=== PATIENT | male | born 1965 | race Caucasian/White ===

== ENCOUNTER 2018-07-22 14:47 | Outpatient (CLI) | payer OTHER, SELFPAY ==
--- NOTE | 2018-07-22 14:44 | DI.RAD_ITS ---
SYMPTOM/DIAGNOSIS: WRIST PAIN RIGHT WRIST: Three views. No priors. No acute fracture or dislocation is identified. At the first carpal metacarpal joint there are small osteophytes seen. Mild joint space narrowing is also noted. There are a few tiny well corticated osseous fragments at the lateral aspect of the wrist. These appear old. The bones are normally mineralized. IMPRESSION: Mild degenerative changes of the first carpal metacarpal joint.
--- NOTE | 2018-07-22 14:44 | DI.RAD_ITS ---
SYMPTOM/DIAGNOSIS: WRIST PAIN LEFT WRIST: Four views. At the first carpal metacarpal joint mild periarticular spurring is present. The joint spaces of the wrist were otherwise well maintained. The bones are intact. No acute fracture or dislocation is seen. No suspicious lytic or sclerotic lesions are present. The soft tissues are unremarkable. IMPRESSION: Mild degenerative changes of the first carpal metacarpal joint.
== END 2018-07-22 15:07 ==
PROVIDERS: PCP Family Medicine; Visit Provider Physician Assistant
DX: M25.531 Pain in right wrist (principal); M25.532 Pain in left wrist; M18.0 Bilateral primary osteoarthritis of first carpometacarpal joints
CPT/HCPCS: 73110

== ENCOUNTER 2020-12-31 16:12 | Outpatient (REF) | payer OTHER, SELFPAY ==
[2020-12-31 21:08] LABS: Calculated LDL 121 mg/dL (<100); Cholesterol 204 mg/dL (<200); HDL Cholesterol 49 mg/dL (40-60); Triglyceride 174 mg/dL (<150)
[2021-01-03 09:31] LABS: PSA, Screening 1.4 ng/mL (0.0-3.5)
== END 2020-12-31 16:13 | disposition home or self-care (01) ==
LOC: LBN 16:12
PROVIDERS: PCP Family Medicine; Visit Provider Family Medicine
DX: E78.5 Hyperlipidemia, unspecified (principal); Z12.5 Encounter for screening for malignant neoplasm of prostate
CPT/HCPCS: 80061; 84153

== ENCOUNTER 2021-08-15 07:42 | Outpatient (REF) | payer OTHER, SELFPAY ==
[2021-08-15 08:10] LABS: Source Nasal/Nares
[2021-08-15 12:07] LABS: COVID-19 PCR Negative (Negative)
== END 2021-08-15 07:43 | disposition home or self-care (01) ==
LOC: LBN 07:42
PROVIDERS: PCP Family Medicine; Visit Provider Surgery
DX: Z20.822 Contact with and (suspected) exposure to COVID-19 (principal)
CPT/HCPCS: 87635

== ENCOUNTER 2021-08-17 07:20 | Day surgery (SDC) | payer OTHER, SELFPAY ==
--- NOTE | 2021-08-16 14:03 | W.ANESPRE ---
General Info Date of Service Date Performed: 08/17/21 Height: 6 ft 2 in Weight: 92.646 kg Body Mass Index (BMI): 26.2 Surgical Procedure: Operation Date: 08/17/21 09:35 Proposed Procedures Side Surgeon shonda Park MD Meds Allergies and Home Medications Allergies Allergy/AdvReac Type Severity Reaction Status Date / Time No Known Allergies Allergy Verified 08/17/21 07:41 Home Medication Medication Instructions Recorded ibuprofen 800 mg PO Q8H PRN PRN #100 tab-cap 08/13/17 citalopram 20 mg tablet 20 mg PO DAILY #90 tab-cap 12/31/20 hydrocodone 5 mg-acetaminophen 325 1 tab PO BID PRN #30 tab-cap MDD 2 07/13/21 mg tablet tabs Current Visit Medications: Current Medications Generic Name Dose Route Start Last Admin Trade Name Freq PRN Reason Stop Dose Admin Ringer's Solution 1,000 mls @ 80 mls/hr 08/17/21 06:00 IV 09/15/21 23:59 INFUSION JOSE IV Miscellaneous Supplies 1 each 08/17/21 06:00 Iv Access IV 09/15/21 23:59 DIRECTED JOSE Sodium Chloride 0 ml 08/17/21 06:00 Normal Saline Flush 10 Ml Syr IV 09/15/21 23:59 PRN PRN Sodium Chloride 0 ml 08/17/21 06:00 Normal Saline 10 Ml Vial IJ 09/15/21 23:59 DIRECTED PRN Sterile Water 0 ml 08/17/21 06:00 Water,Injection,Sterile 10 Ml Vial IJ 09/15/21 23:59 DIRECTED PRN PFSH Active Problems Active Problems: Problem Status Onset Code Deviated nasal septum 10/23/16 J34.2 Hypertrophy of nasal turbinates 07/30/17 J34.3 Low back pain M54.5 Nasal valve collapse 07/30/17 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, soft tissue, 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 Sleep-disordered breathing 07/30/17 G47.30 Snoring 08/13/17 R06.83 Encounter for annual physical exam Z00.00 Medical History Active Problem List Deviated nasal septum (Acute 10/23/16) Hypertrophy of nasal turbinates (Acute 07/30/17) Low back pain (Acute) Nasal valve collapse (Acute 07/30/17) Neoplasm of unspecified nature of bone, soft tissue, and skin (Acute 01/14/18) Sleep-disordered breathing (Acute 07/30/17) Snoring (Acute 08/13/17) Encounter for annual physical exam (Acute) Medical History Adenoma of colon (11/10/15) Family history of prostate cancer (08/24/14) father Fatigue Hand arthritis Hyperlipidemia Hypothyroidism Left inguinal hernia Separation of acromioclavicular joint (08/24/14) Surgical History Surgical History (Updated 08/17/21 @ 07:44 by Shannon Piña) History of right knee surgery (08/24/14) Hx of LASIK Repair of inguinal hernia (08/13/17) RIGHT - 07/18/16 Left - 08/13/17 Tobacco Smoking/Tobacco Use Status: Never Passive smoking exposure: Yes Alcohol Alcohol Intake: current Alcohol intake frequency: a few times a month Alcohol type: beer Substance Use Substance use: Never Substance use type: does not use Details: CBD oil Vital Signs and Lab Results Lab Results Blood Type / Crossmatch: No Data to Display Complete Blood Count: No Data to Display Complete Metabolic Panel: No Data to Display Liver Function Panel: No Data to Display Coagulation Panel: No Data to Display Cardiac Panel: No Data to Display Arterial Blood Gas: No Data to Display Venous Blood Gas: No Data to Display Pancreas Panel: No Data to Display Thyroid Panel: No Data to Display Infectious Disease: Coronavirus (COVID-19)(PCR) Negative (Negative) 08/15/21 06:00 08/15/21 Coronavirus 2019 Source Nasal/Nares 08/15/21 06:00 08/15/21 Blood Cultures: No Data to Display Toxicology Panel: No Data to Display Anesthesia Assessment and Plan Anesthesia History Personal History: No History of Anesthesia Complications Family History: No Family History of Anesthesia Complications Exercise Tolerance Exercise Tolerance: Metabolic Equivalents>4 Cardiac & Pulmonary Exam Cardiac Exam: Normal S1/S2 Heart Sounds Pulmonary Exam: Clear Bilateral Breath Sounds Implantable Cardiac Device Does patient have a Pacemaker or an ICD?: No Airway Exam Known Difficult Airway: No Mallampati Class: 1 Mouth Opening: Normal (> 3cm) Thyromental Distance: Greater than 3 cm Neck Range of Motion: Full ROM Neck Circumference: Normal Teeth Condition: Normal Dentition ASA Classification ASA Score: ASA 2 Emergency Case?: No NPO Status NPO Status: NPO Clears >2 hours, Solids >8 hours Anesthesia Plan Resuscitation Status: Full Code Anesthesia Technique: General Anesthesia Airway Planned: Natural Airway Monitors Used: Standard Monitors Preoperative Comments:: 56 yo male for colo with history of polyps. Sig PMHx: denies major. Previous Anes: willams 2, easy mask.
--- NOTE | 2021-08-17 06:38 | W.COLOREPORT ---
Colonoscopy Report Date of procedure: 08/17/21 Pre-op diagnosis general: Hx of colon polyps Post-op diagnosis procedure note: same (polyps) Procedure: Colonoscopy with polypectomy Surgeon: Ale Park Anesthesia Type: General:No Airway (Juventino Armendariz CRNA) Estimated blood loss (mL): 2 Pathology: other (descending colon polyp and rectal polyp) Complications: None Disposition: same day Indications: Lisandro is a healthy 56-year-old patient who had a colonoscopy back in 2016 and was found to have a sessile serrated adenoma of the ascending colon. He is here for another screening colonoscopy. He denies any changes in bowel habits, melena, hematochezia or family history of colon cancer. He has no chest pain, cardiovascular disease history or shortness of breath. [place]. Risks, benefits and complications were reviewed with him Risks, benefits and complications have been reviewed. Complications include but are not limited to bleeding, pain, perforation, missed small lesion/polyp, sore throat, aspiration and adverse reaction to the medications. Questions were entertained and answered to their satisfaction and they wished to proceed. No guarantees were given or implied. Colonoscopy under sedation Prep: Miralax/Dulcolax Procedure Start Time: 08:57 Procedure End Time: 09:19 Retraction Time: 12 minutes Findings: 2 small polyps Procedure Description: After informed consent was obtained the patient was taken to the procedure room and placed in a left decubitous position. Monitors were applied and a time out was done. The patients name, date of , procedure, allergies to medications and metal in their body was reviewed. The patient was then sedated. Once sedated and comfortable a rectal exam was done. External exam was normal. Internal exam revealed a normal sphincter tone and no palpable masses. The prostate felt smooth and slightly enlarged. The scope was then introduced and retro-flexed. No internal hemorrhoids, polyps or masses were identified on retro-flexion. The scope was then advanced to the cecum without difficulty. The ileocecal vlave and appendiceal orifice were identified. The prep was good. The scope was then slowly retracted over [] minutes back into the rectum. Polyps were removed with cold forceps in the descending colon and rectum. There was no diverticulosis noted. The scope was removed and the patient was woken up and taken back to Same day surgery in stable condition. The patient tolerated the procedure well and there were no immediate complications. Follow up: The patient should follow up in 5 years unless they develop changes in bowel habits or other new gastrointestinal complaints.
--- NOTE | 2021-08-17 06:39 | W.PM.DSUDISC ---
Discharge Plan Disposition Patient Disposition: HOME Condition: Good Discharge Details Reason For Visit: Colonoscopy Attending Provider: Ale Park Primary Care Provider: Tab Jeong Home Meds and New Rx's Prescriptions: Continued citalopram 20 mg tablet 20 mg PO DAILY Qty: 90 RF: 3 hydrocodone-acetaminophen 5-325 mg tablet 1 tab PO BID MDD 2 tabs PRN (Reason: chronic pain) Qty: 30 RF: 0 ibuprofen 200 MG tablet 800 mg PO Q8H PRN PRNQty: 100 RF: 0 Discharge Instructions Additional Instructions: Findings: 2 polyps Follow up: 5 years Please call if you develop: fevers >101.5 Nausea or Vomiting Abdominal pain that is not transient Rectal bleeding that is more then a tbsp A hard abdomen and inability to pass gas DAY SURGERY UNIT POST ENDOSCOPY INSTRUCTIONS Instructions for everyone who is given Anesthesia: For your safety, please do the following for the next 24 Hours: a. Do not drive or operate dangerous equipment b. Do not drink alcohol beverages or use any recreational drugs for the first 24 hours or while taking pain medications. The medications in your body may have a reaction that can be dangerous. c. Do not make any important decisions or sign any important papers 1. Generally there are no restrictions on your activity after a day or so has gone by, but you may feel a bit fatigued for a few days. 2. After you arrive home you may have a light meal and return to a normal diet as you can tolerate it without feeling sick to your stomach. 3. After surgery, you may feel pain or discomfort. This should be only transient, but if it persists please contact your doctor. 4. If there are any questions regarding the findings of your procedure, please feel free to contact your doctor. 6. If you are unable to contact your doctor with a problem, contact the hospital at [phone]. 7. Continue all your regular medications unless directed otherwise. I understand the above instructions and have no questions. Signature of Patient or Responsible Adult Escort Date/Time Name of Responsible Adult Escort Signature of Nurse Date/Time Activity:: Activity as Tolerated Diet:: As Tolerated Discharge Orders Discharge Orders: Discharge Order (Routine); Ordered 08/17/21 Ordered By: Ale Park
[2021-08-17 07:46] VITALS: BP 118/86; PULSE 67; RESP 16; TEMP 36.2; O2SAT 97
[2021-08-17] MEDS: Lactated Ringers 1,000 ML 80 ML IV (07:50)
[2021-08-17 08:16] VITALS: BMI 26.2
--- NOTE | 2021-08-17 09:12 | BOWEL_PTH ---
PATIENT: Lisandro Alcantara LOC: [facility] U#:[id number] AGE/SX: 56/M ROOM: RE08/17/[address]: Ale Park MD : 1965 BED: DIS: 08/17/2021 SPEC #: [id number] RECD: 08/17/21 12:40 STATUS: ARTHUR REQ #: [id number] ELI: 08/17/21 09:[address]: Ale Park DEPT: Surgical Specimen RECD BY: Maria Esther Ramsey ENTERED: 08/17/21 12:41 SP TYPE: Bowel OTHR DR: Tab Jeong MD Tissues: 1 - BIOPSY BOWEL 2 - BIOPSY BOWEL Procedures: GROSS AND MICRO LEVEL 4 Comments: [id number]
[2021-08-17 09:28] VITALS: BP 105/64; PULSE 70; RESP 16; TEMP 36.5; O2SAT 93
--- NOTE | 2021-08-17 09:45 | W.ANESPOSTOP ---
Postoperative Evaluation Date, Time and Location Date Performed: 08/17/21 Time Performed: 09:46 Patient Location: Day Surgery Unit Vital Signs Most Recent Imported Vital Signs: Most Recent Vital Signs Temp Pulse Resp BP Pulse Ox 36.5 C 70 16 105/64 93 08/17/21 09:28 08/17/21 09:28 08/17/21 09:28 08/17/21 09:28 08/17/21 09:28 Pain Score Most Recent Pain Score: Most Recent Pain Score Pain Level 0 08/17/21 09:28 Assessment Mental Status: Awake (Alert & Oriented to Patient Baseline) Airway and Respiratory Function: Patent airway with normal (patient baseline) respiratory exam Cardiovascular Function: Hemodynamically Stable Hydration Status: Adequately Hydrated Nausea & Vomiting: No Nausea or Vomiting Pain: Pt. Denies Any Pain Peripheral Nerve Block: Patient did not receive a nerve block
[2021-08-17 09:57] VITALS: BP 105/69; PULSE 74; RESP 16; TEMP 36.6; O2SAT 95
== END 2021-08-17 10:17 | disposition home or self-care (01) ==
LOC: SUR 07:21
PROVIDERS: PCP Family Medicine; Visit Provider Surgery
PROC: 0DJD8ZZ Inspection of Lower Intestinal Tract, Via Natural or Artificial Opening Endoscopic (ICD-10-PCS; CPT 45378; principal; 2021-08-17 09:30)
DX: Z12.11 Encounter for screening for malignant neoplasm of colon (principal); D12.3 Benign neoplasm of transverse colon; D12.8 Benign neoplasm of rectum; Z86.010 Personal history of colon polyps
CPT/HCPCS: 45380; 88305; J2001

== ENCOUNTER 2023-01-09 08:58 | Outpatient (CLI) | payer OTHER, SELFPAY ==
[2023-01-09 12:38] LABS: Abs Immature Grans 0.01 10^3/uL (0.0-0.06); Absolute Basophil Count 0.03 10^3/uL (0.0-0.2); Absolute Eosinophil Count 0.06 10^3/uL (0.0-0.7); Absolute Lymphocyte Count 1.45 10^3/uL (1.2-3.4); Absolute Monocyte Count 0.46 10^3/uL (0.1-0.8); Absolute Neutrophil Count 2.76 10^3/uL (1.2-6.7); Basophils % 0.6; Eosinophils % 1.3; HCT 45.6 % (40.0-50.0); HGB 15.9 g/dL (13.5-17.5); Immature Grans % 0.2; Lymphocytes % 30.4; MCH 33.2 pg (27.0-33.0); MCHC 34.9 % (32.0-36.0); MCV 95 fL (80-95); MPV 11.6 fL (8.0-11.0); Monocytes % 9.6; Neutrophils % 57.9; Platelet Count 172 10^3/uL (130-400); RBC 4.79 10^6/uL (4.36-5.78); RDW 11.9 % (11.8-14.1); RDW-SD 41.7 fL; WBC 4.77 10^3/uL (4.4-10.8)
[2023-01-09 12:39] LABS: ESR < 1 mm/hr (0-20)
[2023-01-09 12:58] LABS: C-Reactive Protein < 0.05 mg/dL (0.0-0.3); Estimated GFR 87.78 (mL/min/1.73m2); Glucose 98 mg/dL (74-106)
[2023-01-10 17:58] LABS: Rheumatoid Factor <8.6 IU/mL (<12.0)
[2023-01-10 20:05] LABS: PSA, Screening 2.4 ng/mL (<=3.5)
== END 2023-01-09 08:59 | disposition home or self-care (01) ==
PROVIDERS: PCP Family Medicine; Referring Provider Family Medicine; Visit Provider Family Medicine
DX: R41.89 Other symptoms and signs involving cognitive functions and awareness (principal); D64.9 Anemia, unspecified; R73.9 Hyperglycemia, unspecified; Z12.5 Encounter for screening for malignant neoplasm of prostate; I10 Essential (primary) hypertension
CPT/HCPCS: 36415; 82947; 84153; 85652; 82565; 85025; 86140; 86431

== ENCOUNTER → 2023-11-06 09:44 | Outpatient (CLI) | payer OTHER, SELFPAY ==
--- NOTE | 2023-11-06 14:54 | DI.RAD_ITS ---
Exam(s) XR SHOULDER RT COMPLETE 2+V EXAM: XR SHOULDER RT COMPLETE 2+V CLINICAL HISTORY: ongoing pain; no acute injury M25.511 PAIN RT SHOULDER. TECHNIQUE: 2D digital imaging was performed. Five views. COMPARISON: CR RIGHT SHOULDER COMPLETE from 10/12/2011 FINDINGS: BONES: No acute fracture is present. No bony destructive lesion is seen. JOINTS: The AC joint is widened. There is mild spurring. There are 2 adjacent well-corticated bony densities likely related to old trauma. The coracoclavicular distance is normal. Humeral head is n ormally positioned. The glenohumeral joint space is maintained. Minimal spurring at the glenoid. SOFT TISSUE: Normal. IMPRESSION: Old trauma to the AC joint and distal clavicle. Mild degenerative changes. DATA REPOSITORY: RADIATION DOSE DELIVERED:
== END ==
PROVIDERS: PCP Family Medicine; Visit Provider Family Medicine
DX: M25.511 Pain in right shoulder (principal)
CPT/HCPCS: 73030

== ENCOUNTER → 2024-01-08 04:32 | Outpatient (CLI) | payer OTHER, SELFPAY ==
--- NOTE | 2024-01-08 08:15 | DI.MRI_ITS ---
Exam(s) MR UPPER JOINT RT WO EXAM: MR UPPER JOINT RT WO CLINICAL HISTORY: R SHOULDER PAIN,labral tear rt shoulder, m25.511,s43.239A. TECHNIQUE: Multiplanar multisequence MRI was performed. COMPARISON: Plain films 06 November 2023 FINDINGS: BONES: There is no fracture or contusion pattern. JOINTS:The acromioclavicular joint is widened. Adjacent bony fragments. Spurring at the undersurfac e of the acromion. The glenohumeral joint is normal. TENDONS: Supraspinatus: Small focal full-thickness tear anteriorly in distally. Infraspinatus: Unremarkable. Subscapularis: Unremarkable. Teres Minor: Unremarkable. Biceps and Mccall: Intact. Minimal fluid in the biceps tendon sheath. MUSCLES: Unremarkable. GLENOID LABRUM: Unremarkable on this noncontrast examination. SOFT TISSUES: Unremarkable. OTHER: Subacromial and subdeltoid bursae show small amount of fluid. . Loculated fluid in the subcoracoid bursa. Loculated appearing fluid anterior to supraspinatus tendon . IMPRESSION: focal full-thickness tear of the anterior aspect of the supraspinatus tendon. Loculated fluid in subcoracoid bursa. DATA REPOSITORY:
== END ==
PROVIDERS: PCP Family Medicine; Visit Provider Student in an Organized Health Care Education/Training Program
DX: M75.121 Complete rotator cuff tear or rupture of right shoulder, not specified as traumatic (principal); M25.511 Pain in right shoulder
CPT/HCPCS: 73221

== ENCOUNTER 2024-03-06 06:13 | Day surgery (SDC) | payer OTHER, SELFPAY ==
[2024-03-06] VITALS (22 sets, daily range): BP systolic 98–124; BP diastolic 73–85; PULSE 62–77; RESP 14–21; TEMP 36.2–36.8; O2SAT 92–95; BMI 27.4
--- NOTE | 2024-03-06 07:07 | W.PM.DSUDISC ---
Date of service: 03/06/24 Time of Service: 13:00 Discharge Plan Disposition Patient Disposition: Home Condition: Stable Discharge Details Attending Provider: Les Dorsey Primary Care Provider: Tab Jeong Home Meds and New Rx's Prescriptions: New naproxen 250 mg tablet 250 - 500 mg PO BID PRN (Reason: Moderate pain) Qty: 40 0RF Continued hydrocodone-acetaminophen 5-325 mg tablet 1 tab PO BID MDD 2 tabs PRN (Reason: chronic pain) Qty: 30 0RF citalopram 20 mg tablet 20 mg PO DAILY Qty: 90 3RF cbd 20 mg capsule 20 mg PO DIRECTED PRN multivitamin [Daily Multi-Vitamin] Tablet 1 tab PO DAILY Discontinued ibuprofen 200 MG tablet 800 mg PO Q8H PRN PRNQty: 100 0RF Discharge Instructions Additional Instructions: Surgery: Right shoulder arthroscopy with rotator cuff repair (subscapularis and supraspinatus), biceps tenodesis, extensive debridement, and subacromial decompression. Activity: For 6 weeks, you should keep your arm at your side in a neutral position at all times except for physical therapy. Do not try to lift or raise your arm using your own muscles. You should use the sling whenever you are out of the house. At home it is best to remove the sling and rest the arm on a pillow at your side or support the operative side with your other hand. You may allow the arm to dangle at your side. A physical therapy prescription will be sent electronically to begin in about 3 weeks. CONSERVATIVE protocol. Prescriptions: Hydrocodone?acetaminophen as prescribed by your primary care doctor Naproxen 250 mg take 1-2 every 12 hours with a meal as needed for moderate pain. Do not take other NSAIDs while taking this medication. You may use [id number] Tylenol (acetaminophen) as needed for mild pain. These pain medications may be taken all at once or in different combinations as needed. Also, recommend Colace (docusate) as a stool softener as surgery and pain medicine cause constipation. You may try [id number] diphenhydramine (Benadryl) 25-50 mg nightly as a sleep aid Dressings: Remove shoulder bandage after 3 days. Leave the sticky Steri-Strips in place until they fall off or remove them after you shower. Cover the incisions with Band-Aids or leave them open to air. You may shower after 5 days. Follow-up: 10-[address] Dorsey You may take off the leg compression stockings this evening at home. You may also leave them on a few days longer if you have a history of leg swelling or edema. Let us know right away if you develop any redness, drainage, fevers, chest pain, or trouble breathing. Do not drink alcohol or drive for at least 24 hours after anesthesia. Please call the office during business hours with any questions or concerns. Discharge Orders Discharge Orders: Discharge Order (Routine); Ordered 03/06/24 Ordered By: Bayron Oro DS: Diagnosis Discharge Diagnosis (1) Right rotator cuff tear: Status: Acute
[2024-03-06] MEDS: Lactated Ringers 1,000 ML 30 ML IV (07:10)
--- NOTE | 2024-03-06 07:21 | W.ANESPRE ---
General Info Date of Service Date Performed: 03/06/24 Height: 6 ft 2 in Weight: 96.9 kg Body Mass Index (BMI): 27.4 Surgical Procedure: Operation Date: 03/06/24 07:40 Proposed Procedure Side Surgeon p Shoulder Rotator Cuff Arthroscopic w/Extensive Debridement, Biceps Tenodesis, Subacromial Decompression Right Les Dorsey MD Meds Allergies and Home Medications Allergies Allergy/AdvReac Type Severity Reaction Status Date / Time No Known Allergies Allergy Verified 03/06/24 06:31 Home Medication Medication Instructions Recorded ibuprofen 200 mg tablet 800 mg (4 x 200 mg) PO Q8H PRN PRN 08/13/17 #100 tab-caps citalopram 20 mg tablet 20 mg PO DAILY #90 tab-caps 08/14/23 hydrocodone 5 mg-acetaminophen 325 1 tab PO BID PRN chronic pain #30 02/21/24 mg tablet tab-caps cbd 20 mg PO DIRECTED PRN 03/04/24 multivitamin (Daily Multi-Vitamin 1 tab PO DAILY 03/06/24 tablet) naproxen 250 mg tablet 250 - 500 mg (1 - 2 x 250 mg) PO 03/06/24 BID PRN Moderate pain #40 tabs Current Visit Medications: Current Medications Generic Name Dose Route Start Last Admin Trade Name Freq PRN Reason Stop Dose Admin Hydrocodone Bitart/Acetaminophen 1 tab 03/06/24 07:12 Hydrocodone 5/Acetaminophen 325 Tab PO 04/05/24 07:11 Q3H PRN PRN Droperidol 0.625 mg 03/06/24 06:41 Droperidol 5 Mg/2 Ml Vial IVP 04/05/24 06:40 DIRECTED PRN Nausea Ephedrine Sulfate 0 mg 03/06/24 06:41 Ephedrine 25 Mg/5 Ml Syringe IVP 04/05/24 06:40 DIRECTED PRN Fentanyl 0 mcg 03/06/24 06:41 Fentanyl 100 Mcg/2 Ml Vial IVP 04/05/24 06:40 DIRECTED PRN Hydromorphone HCl 0 mg 03/06/24 06:41 Hydromorphone 2 Mg/Ml Syr IVP 04/05/24 06:40 DIRECTED PRN Ringer's Solution 1,000 mls @ 30 mls/hr 03/06/24 06:00 03/06/24 07:10 IV 04/04/24 23:59 30 mls/hr INFUSION JOSE Administration Cefazolin Sodium/Dextrose 2 gm in 50 mls @ 100 mls/hr 03/06/24 06:00 Ancef Duplex IVPB 03/06/24 16:00 PREOP JOSE Tranexamic Acid/Sodium Chloride 1,000 mg in 100 mls @ 600 mls/hr 03/06/24 06:00 IVPB 03/06/24 16:00 PREOP JOSE IV Miscellaneous Supplies 1 each 03/06/24 06:00 Iv Access IV 04/04/24 23:59 DIRECTED JOSE Naloxone HCl 0 mg 03/06/24 06:41 Naloxone 0.4 Mg/Ml Vial IVP 04/05/24 06:40 PRN PRN Sodium Chloride 0 ml 03/06/24 06:00 Normal Saline Flush 10 Ml Syr IV 04/04/24 23:59 PRN PRN Sodium Chloride 0 ml 03/06/24 06:00 Normal Saline 10 Ml Vial IJ 04/04/24 23:59 DIRECTED PRN Sterile Water 0 ml 03/06/24 06:00 Water,Injection,Sterile 10 Ml Vial IJ 04/04/24 23:59 DIRECTED PRN PFSH Active Problems Active Problems: Problem Status Onset Code Tendinitis of long head of biceps brachii of left shoulder M75.22 Tendonitis of long head of biceps brachii of right shoulder M75.21 Right rotator cuff tear M75.101 Labral tear of shoulder S43.439A Right shoulder pain M25.511 Chronic right shoulder pain M25.511, G89.29 Chronic bilateral low back pain without sciatica M54.50, G89.29 Chronic pain syndrome G89.4 Deviated nasal septum 10/23/16 J34.2 Hypertrophy of nasal turbinates 07/30/17 J34.3 Low back pain M54.5 Nasal valve collapse 07/30/17 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, soft tissue, 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 D49.2 Sleep-disordered breathing 07/30/17 G47.30 Snoring 08/13/17 R06.83 Encounter for annual physical exam Z00.00 Medical History Medical History Hyperlipidemia Separation of acromioclavicular joint (08/24/14) Hand arthritis Adenoma of colon (11/10/15) Family history of prostate cancer (08/24/14) father Left inguinal hernia Hypothyroidism Fatigue Surgical History Surgical History Hx of KARINA History of right knee surgery (08/24/14) Repair of inguinal hernia (08/13/17) RIGHT - 07/18/16 Left - 08/13/17 Tobacco Smoking/Tobacco Use Status: Never Passive smoking exposure: Yes Second hand exposure: No Alcohol Alcohol Intake: current Alcohol intake frequency: a few times a week Alcohol type: beer and hard liquor Substance Use Substance use: Never Substance use type: does not use Vital Signs and Lab Results Vital Signs Most Recent Vital Signs in EMR: Most Recent Vital Signs Temp Pulse Resp BP Pulse Ox 36.5 C 64 16 124/85 95 03/06/24 06:15 03/06/24 06:15 03/06/24 06:15 03/06/24 06:15 03/06/24 06:15 Lab Results Blood Type / Crossmatch: No Data to Display Complete Blood Count: No Data to Display Complete Metabolic Panel: No Data to Display Liver Function Panel: No Data to Display Coagulation Panel: No Data to Display Cardiac Panel: No Data to Display Arterial Blood Gas: No Data to Display Venous Blood Gas: No Data to Display Pancreas Panel: No Data to Display Thyroid Panel: No Data to Display Infectious Disease: No Data to Display Blood Cultures: No Data to Display Toxicology Panel: No Data to Display Anesthesia Assessment and Plan Anesthesia History Personal History: No History of Anesthesia Complications Family History: No Family History of Anesthesia Complications Exercise Tolerance Exercise Tolerance: Metabolic Equivalents>4 Pertinent Negatives Pertinent Negatives: No Symptoms of GERD Cardiac & Pulmonary Exam Cardiac Exam: Normal S1/S2 Heart Sounds Pulmonary Exam: Clear Bilateral Breath Sounds Implantable Cardiac Device Does patient have a Pacemaker or an ICD?: No Airway Exam Known Difficult Airway: No Mallampati Class: 1 Mouth Opening: Normal (> 3cm) Thyromental Distance: Greater than 3 cm Neck Range of Motion: Full ROM Neck Circumference: Normal Teeth Condition: Normal Dentition ASA Classification ASA Score: ASA 2 Emergency Case?: No NPO Status NPO Status: NPO Clears >2 hours, Solids >8 hours Anesthesia Plan Resuscitation Status: Full Code Anesthesia Technique: General Anesthesia Airway Planned: Endotracheal Tube Pain Management: Surgeon and patient request nerve block Monitors Used: Standard Monitors
--- NOTE | 2024-03-06 07:26 | ROE_ITS ---
Date of service: 03/06/24 Time of Service: 07:30 Operative Note Operative Note DATE OF PROCEDURE: 03/06/24 PRE-OP DIAGNOSIS: Right: 1. Rotator cuff tear 2. LHB tendinopathy 3. Subcoracoid cyst 4. Prior open distal clavicle excision POST-OP DIAGNOSIS: same PROCEDURE: Right: 1. Rotator cuff repair, CPT# 34900. This involved repair of the subscapularis and supraspinatus using anchors and sutures to reattach the rotator cuff back to the footprint of the lesser and greater tuberosity. 2. Arthroscopic biceps tenodesis, CPT# 10493. This involved arthroscopically suturing and reattaching the long head of the biceps tendon to the proximal humerus at the superior margin of the bicipital groove with a screw at the correct tension. 3. Extensive debridement, CPT# 64761. This involved using arthroscopic hand instruments, power instruments, and radiofrequency instruments to release the long head of the biceps tendon and debride areas of labral tearing, synovitis, and chondromalacia about bicipital groove and anterior superior humeral head, release subscapularis capsular adhesions and the [facility] L working within the glenohumeral joint anteriorly, superiorly and posteriorly. 4. Subacromial decompression with partial acromioplasty, CPT# 37814. This involved using arthroscopic power instruments and a radiofrequency wand to complete a bursectomy and smooth the undersurface of the acromion. The assistant professor of radiology was medically required in order to help assist in techniques above, which require positioning the arm, holding the arthroscope, and manipulating multiple instruments and sutures at the same time. This cannot be done without the help of an experienced assistant professor of radiology. SURGEON: Les Dorsey WRAPPER SELECTOR: Bayron Oro ANESTHESIA TYPE: Local By Surgeon, General LMA/ETT and Primary Nerve Block Refer to Anesthesia Record ESTIMATED BLOOD LOSS: 10 PATHOLOGY: none sent COMPLICATIONS: None Patient was transported to: PACU Patient's condition: stable Implants: Arthrex: 4.75mm SwiveLocks x 2 Indications: The patient was diagnosed with the above conditions and appropriately indicated for surgical intervention. Please see complete medical record for details. Findings: Exam under anesthesia: Full range of motion, no instability Glenohumeral joint: Moderate to high-grade focal anterior superior near the subscapularis and bicipital groove disruption chondromalacia. Mild otherwise diffuse chondromalacia. Mild anterior and posterior labral fraying tearing. Upper margin subscapularis mildly retracted, chronic?appearing tear with delaminated somewhat poor tissue through the tear and adhesions between the subscapularis and the anterior capsule and disruption and diminutive [facility]. Significant partial intra-articular and upper bicipital groove biceps partial tearing and flattening. Actually intact articular sided supraspinatus infraspinatus. Subacromial space: Moderately significant bursitis, no significant acromial bone spur. Chronic?appearing delaminated and frayed somewhat medial longitudinal anterior supraspinatus tear with intact medial articular tissue and no significant extension anteriorly or posteriorly. Torn portion of this bursal type tear was flipped vertically almost like a displaced meniscus and medially and poor quality for reduction repair into the defect. Procedure Description: In the operating room, general anesthesia was induced. Bilateral shoulders were examined. The patient was positioned in the beachchair position. All bony prominences were well-padded. Preoperative antibiotics were administered. The shoulder was prepped and draped in the usual sterile fashion. The correct patient, procedure, and side of the procedure were all verified prior to incision. Starting through the posterior portal a standard complete diagnostic arthroscopy was performed of the glenohumeral joint including inspection of the long head of the biceps, anterior and superior labrum, subscapularis tendon, supraspinatus and infraspinatus tendons, and axillary recess. The glenoid and humeral head cartilage as well as the posterior labrum were inspected from an anterior viewing portal. Significant findings and interventions noted above. The subscapularis was carefully inspected, it was released with arthroscopic scissors from the anterior capsule, the diminutive disrupted [facility] L was released and then debrided away. Subscapularis mobility confirmed to the lesser tuberosity which was prepared to optimize bone tendon healing as well as debridement route this anterior to superior humeral head chondromalacia. The nonviable portion of subscapularis was debrided. The upper third portion of the tendon was torn from the lesser tuberosity, but could be reduced without undue tension and seemed good enough quality for repair, which should be done given the high activity level and relatively young patient age despite the apparent chronicity of this injury. Before proceeding with the anterior work subscapularis and biceps, an additional working portal was created through the anterior supraspinatus tear localized through the subacromial space. Starting through the posterior portal, the arthroscope was directed into the sub acromial space. A lateral 50 yard line lateral portal was created. A combination of power instruments and a radiofrequency ablator were used to debride bursitis anteriorly, posteriorly, and laterally as well as expose and smooth bone spurring on the undersurface of the acromion. The coracoacromial ligament was partially released. The bursectomy was completed viewing laterally and working from posteriorly and the rotator cuff was thoroughly inspected with findings noted above. The rotator cuff tear was debrided of the torn flipped piece that was not reasonable to repair. The fraying was debrided lightly in the different layers about the somewhat longitudinal central to medial greater tuberosity debrided and inspected. There was reasonably good tissue at the medial margin without significant extension anteriorly or posteriorly. The thin medial intact layer centrally was then dilated with a switching stick to accommodate small hand instruments to assist in the biceps and subscapularis repairs. An all-arthroscopic suprapectoral biceps tenodesis was started through the anterior superior lateral portal through the rotator cuff, but the suture did not properly deploying so it was done as standard through the anterior portal using a Loop N Tack method with a SutureTape FiberLink cinched around and through the tendon and the repair suture tail was then brought out the ASL michael l for later repair with the subscapularis but keep out of the way for the subscapularis work. The sutures had been placed through and around the biceps tendon at the superior aspect of the bicipital groove and with direct arm pressure biceps had some retraction in the bicipital groove to reduce tension on the partial tearing without creating Yaron deformity. The subscapularis tear configuration was confirmed, reduction provisionally done with the cuff grasper to the planned suture anchor in the lateral aspect of lesser tuberosity and medial aspect of the bicipital groove between the exposed lesser tuberosity and bicipital groove. The self retrieving suture passer was used to place a suture tape FiberLink in the upper lateral portion of the tear. Traction on this repair suture used to place with a 90 degree lasso a more centrally and spread horizontal FiberTape mattress suture. All the suture tails were brought out the anterior cannula. The biceps repair suture was then retrieved and brought out the anterior cannula Separately. The punch was used to localize suture anchor placement. The subscapularis repair suture tails were loaded from medial to lateral and biceps tenodesis repair suture from lateral to medial through the anchor eyelet, which was deployed with good tension on both repairs. The extra knotless repair suture was then used to secure the most upper lateral portion of the subscapularis. The repair was stable through external rotation and testing. The biceps tendon was stable through direct arm pressure and arm motion with the stump of the biceps recessed the level of the superior aspect of the bicipital groove. Attention was then turned back to the subacromial space. The self retrieving suture passer was used to place an inverted horizontal mattress FiberTape spanning the narrow tear at the appropriate level medially just around the articular margin. Centrally in a ripstop configuration a suture tape FiberLink was placed incorporating more tissue medially. The repair sutures were provisionally reduced to a single central to lateral anchor with nice reapproximation of the anterior to posterior defect as well. The punch was used to localize suture anchor, which was loaded with repair sutures, care taken to avoid undue tension on this somewhat partial and chronic tear and deployed nicely. There was excellent fixation strength and stable through probing and motion. One of the double loaded sliding repair suture was then shuttled widely from anterior to posterior with a 9 degree lasso and additional security secured with SMC arthroscopic knots between the anterior and posterior splint in the tissue. The shoulder was drained of arthroscopic fluid. All portal sites were copiously irrigated. These incisions were closed using 3-0 Monocryl in a buried fashion and then covered with Mastisol, Steri-Strips, Xeroform, dry gauze, and ABDs. The dressings were covered and secured with Medipore tape. The operative extremity was placed into a sling for immobilization. The patient awoke from anesthesia without complication and was transferred to the recovery room in a stable condition.
[2024-03-06] MEDS: ceFAZolin 2 GM/50 ML BAG IVPB (07:49)
[2024-03-06] MEDS: TRANEXAMIC ACID/SOD. CHL. 1,000 MG/100 ML BAG 600 MG IVPB (08:05)
--- NOTE | 2024-03-06 08:26 | W.ANESNERVE ---
Nerve Block Single Injection Procedure Date and Time Date Performed: 03/06/24 Procedure Start: : Location Where Procedure Performed Procedure Location: Day Surgery Unit Reason Performed: Postoperative Analgesia Requesting Provider: Les Dorsey Timeout Performed Timeout Performed: Yes Monitoring Used ECG, Blood Pressure, SpO2 and See EMR for corresponding vital signs Sterility Sterility: Hand Hygiene, Surgical Cap, Surgical Mask, Sterile Gloves, Eye Protection and Chlorhexidine Sedation Given During Procedure Sedation Given (Indicate Dose Given): Versed IV Dose:: 4mg IVP Patient Mental Status Patient Mental Status: Sedate with meaningful communication Nerve Block 1st Nerve Block: Laterality: Right Block Type: Interscalene Ultrasound Image Saved?: Yes Needle / Catheter Used: 80mm SonoPlex II Local Anesthetic Bolus (Indicate Dose Given): Lidocaine used for local infiltration of skin, Injected in 3-5ml increments after negative blood aspiration, Bupivacaine 0.5% Dose:: 0.5%/10cc (50mg) and Exparel Dose:: 1.33%/10cc (133mg) Additives (Indicate Dose Given): Epinephrine to make 1:200,000 (5mcg/ml) Dose:: 100mcg and Decadron Dose:: 10mg PF Ultrasound: Sterile probe cover and gel used Nerve Stimulator: Not Used Paresthesia: None Procedure Tolerated: No Complications and Patient tolerated well Procedure Outcome: Successful Performed By: Raleigh Montes
[2024-03-06] MEDS: Bupivacaine 0.25% Pres-Free W/EPI 30 ML VIAL (08:42)
[2024-03-06] MEDS: EPINEPHrine 10 MG/10 ML ML (10:09)
--- NOTE | 2024-03-06 12:29 | W.ANESPOSTOP ---
Postoperative Evaluation Date, Time and Location Date Performed: 03/06/24 Time Performed: 12:29 Patient Location: Day Surgery Unit Vital Signs Most Recent Imported Vital Signs: Most Recent Vital Signs Temp Pulse Resp BP Pulse Ox 36.2 C L 76 16 122/78 95 03/06/24 12:04 03/06/24 12:04 03/06/24 12:04 03/06/24 12:04 03/06/24 12:04 Pain Score Most Recent Pain Score: Most Recent Pain Score Pain Level 2 03/06/24 12:04 Assessment Mental Status: Awake (Alert & Oriented to Patient Baseline) Airway and Respiratory Function: Patent airway with normal (patient baseline) respiratory exam Cardiovascular Function: Hemodynamically Stable Hydration Status: Adequately Hydrated Nausea & Vomiting: No Nausea or Vomiting Pain: Pt. Denies Any Pain Peripheral Nerve Block: Regional nerve block not resolved at time of post operative discharge
== END 2024-03-06 13:05 | disposition home or self-care (01) ==
PROVIDERS: PCP Family Medicine; Visit Provider Student in an Organized Health Care Education/Training Program
PROC: (CPT 29827; principal; 2024-03-06 07:30)
DX: M75.101 Unspecified rotator cuff tear or rupture of right shoulder, not specified as traumatic (principal); M75.22 Bicipital tendinitis, left shoulder; M85.811 Other specified disorders of bone density and structure, right shoulder
CPT/HCPCS: 29827; 29828; 29823; 29826; 76942; C9290; J0131; J0171; J0665; J0690; J1100; J1885; J2001; J2250; J2405; J2704

== ENCOUNTER → 2024-04-01 01:08 | Outpatient (CLI) | payer OTHER, SELFPAY ==
--- NOTE | 2024-04-01 07:15 | DI.MRI_ITS ---
Exam(s) MR UPPER JOINT RT WO EXAM: MR UPPER JOINT RT WO CLINICAL HISTORY: PAIN,rt rotator cuff tear,rupture rt prox biceps tendon,m75.101,s46.211a. TECHNIQUE: Multiplanar multisequence MRI was performed. COMPARISON: CR XR SHOULDER RT COMPLETE 2+V from 11/06/2023 MR MR UPPER JOINT RT WO from 01/08/2024 FINDINGS: BONES: There is no fracture or contusion pattern. Stable posttraumatic or postsurgical changes involv ing the distal clavicle. There are now postsurgical changes seen in the humeral head with orthopedic anchors seen anteriorly and superiorly. JOINTS: Mild increased signal seen around the acromioclavicular joint. This is new compared to the p rior examination. This may be related to recent surgery. The glenohumeral joint is normal. No signi ficant joint effusion. TENDONS: Supraspinatus: There is hyperintense signal seen at the insertion site of the supraspinatus tendon an teriorly. This appears to occur within the supraspinatus tendon suspicious for tear. Infraspinatus: Unremarkable. Subscapularis: There is thickening and intermediate signal seen in the subscapularis tendon. There i s also hyperintense signal seen near its insertion site. This raises a question of a partial tear. [place]: Unremarkable. Biceps and [place]: The long head of the biceps tendon is only visualized distally. There is no assoc iated orthopedic anchor. The findings are most concerning for a biceps tendon tear. MUSCLES: Unremarkable. GLENOID LABRUM: Unremarkable on this noncontrast examination. SOFT TISSUES: There is edema seen in the soft tissues anterior to the humeral head. LIGAMENTS: Unremarkable. OTHER: There is fluid seen in the subacromial subdeltoid bursa. IMPRESSION: 1. Since the prior examination the patient has undergone a rotator cuff repair. There is hyperintens e signal seen near the insertion sites of both the subscapularis and the supraspinatus tendons. This may be postsurgical but a retear should be considered. 2. Findings of a tear of the long head of the biceps tendon. The end of the tendon is seen adjacent to the proximal humeral metaphysis. 3. Please see the above discussion for complete details. DATA REPOSITORY:
== END ==
PROVIDERS: PCP Family Medicine; Visit Provider Student in an Organized Health Care Education/Training Program
DX: S46.211A Strain of muscle, fascia and tendon of other parts of biceps, right arm, initial encounter (principal); M75.101 Unspecified rotator cuff tear or rupture of right shoulder, not specified as traumatic
CPT/HCPCS: 73221

== ENCOUNTER 2024-04-04 10:50 | Day surgery (SDC) | payer OTHER, SELFPAY ==
--- NOTE | 2024-04-03 18:32 | W.ANESPRE ---
General Info Date of Service Date Performed: 04/04/24 Height: 6 ft 2 in Weight: 97.069 kg Body Mass Index (BMI): 27.4 Surgical Procedure: Operation Date: 04/04/24 12:25 Proposed Procedure Side Surgeon p Shoulder Arthroscopy Right Les Dorsey MD Meds Allergies and Home Medications Allergies Allergy/AdvReac Type Severity Reaction Status Date / Time No Known Allergies Allergy Verified 04/04/24 11:16 Home Medication ?Medication ?Instructions ?Recorded citalopram 20 mg tablet 20 mg PO DAILY #90 tab-caps 08/14/23 hydrocodone 5 mg-acetaminophen 325 1 tab PO BID PRN chronic pain #30 02/21/24 mg tablet tab-caps cbd 20 mg PO DIRECTED PRN 03/04/24 multivitamin (Daily Multi-Vitamin 1 tab PO DAILY 03/06/24 tablet) naproxen 250 mg tablet 250 - 500 mg (1 - 2 x 250 mg) PO 03/06/24 BID PRN Moderate pain #40 tabs Current Visit Medications: Current Medications Generic Name Dose Route Start Last Admin Trade Name Matheusq PRN Reason Stop Dose Admin Ringer's Solution 1,000 mls @ 30 mls/hr 04/04/24 06:00 IV 04/04/24 23:59 INFUSION JOSE Cefazolin Sodium/Dextrose 2 gm in 50 mls @ 100 mls/hr 04/04/24 06:00 Ancef Duplex IVPB 04/04/24 23:59 PREOP JOSE Tranexamic Acid/Sodium Chloride 1,000 mg in 100 mls @ 600 mls/hr 04/04/24 06:00 IVPB 04/04/24 23:59 PREOP JOSE IV Miscellaneous Supplies 1 each 04/04/24 06:00 Iv Access IV 04/04/24 23:59 DIRECTED JOSE Sodium Chloride 0 ml 04/04/24 06:00 Normal Saline Flush 10 Ml Syr IV 04/04/24 23:59 PRN PRN Sodium Chloride 0 ml 04/04/24 06:00 Normal Saline 10 Ml Vial IJ 04/04/24 23:59 DIRECTED PRN Sterile Water 0 ml 04/04/24 06:00 Water,Injection,Sterile 10 Ml Vial IJ 04/04/24 23:59 DIRECTED PRN PFSH Active Problems Active Problems: Problem Status Onset Code Rupture of right proximal biceps tendon Acute S46.211A Tendinitis of long head of biceps brachii of left shoulder Acute M75.22 Tendonitis of long head of biceps brachii of right shoulder Acute M75.21 Right rotator cuff tear Acute M75.101 Labral tear of shoulder Acute S43.439A Right shoulder pain Acute M25.511 Chronic right shoulder pain Acute M25.511, G89.29 Chronic bilateral low back pain without sciatica Acute M54.50, G89.29 Chronic pain syndrome Chronic G89.4 Deviated nasal septum Acute 10/23/16 J34.2 Hypertrophy of nasal turbinates Acute 07/30/17 J34.3 Low back pain Acute M54.5 Nasal valve collapse Acute 07/30/17 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, soft tissue, and skin Acute 01/14/18 D49.2 Sleep-disordered breathing Acute 07/30/17 G47.30 Snoring Acute 08/13/17 R06.83 Encounter for annual physical exam Acute Z00.00 Medical History Medical History Hyperlipidemia Separation of acromioclavicular joint (08/24/14) Hand arthritis Adenoma of colon (11/10/15) Family history of prostate cancer (08/24/14) father Left inguinal hernia Hypothyroidism Fatigue Surgical History Surgical History Hx of LASIK History of right knee surgery (08/24/14) Repair of inguinal hernia (08/13/17) RIGHT - 07/18/16 Left - 08/13/17 Tobacco Smoking/Tobacco Use Status: Never Passive smoking exposure: Yes Second hand exposure: No Alcohol Alcohol Intake: current Alcohol intake frequency: a few times a week Alcohol type: beer and hard liquor Substance Use Substance use: Never Substance use type: does not use Vital Signs and Lab Results Vital Signs Most Recent Vital Signs in EMR: Temp Pulse Resp BP Pulse Ox 36 C L 74 16 122/88 96 04/04/24 11:11 04/04/24 11:11 04/04/24 11:11 04/04/24 11:11 04/04/24 11:11 Lab Results Blood Type / Crossmatch: No Data to Display Complete Blood Count: No Data to Display Complete Metabolic Panel: No Data to Display Liver Function Panel: No Data to Display Coagulation Panel: No Data to Display Cardiac Panel: No Data to Display Arterial Blood Gas: No Data to Display Venous Blood Gas: No Data to Display Pancreas Panel: No Data to Display Thyroid Panel: No Data to Display Infectious Disease: No Data to Display Blood Cultures: No Data to Display Toxicology Panel: No Data to Display Anesthesia Assessment and Plan Anesthesia History Personal History: No History of Anesthesia Complications Family History: No Family History of Anesthesia Complications Exercise Tolerance Exercise Tolerance: Metabolic Equivalents>4 Cardiac & Pulmonary Exam Cardiac Exam: Normal S1/S2 Heart Sounds Pulmonary Exam: Clear Bilateral Breath Sounds Implantable Cardiac Device Does patient have a Pacemaker or an ICD?: No Airway Exam Known Difficult Airway: No Mallampati Class: 1 Mouth Opening: Normal (> 3cm) Thyromental Distance: Greater than 3 cm Neck Range of Motion: Full ROM Neck Circumference: Normal Teeth Condition: Normal Dentition ASA Classification ASA Score: ASA 2 Emergency Case?: No NPO Status NPO Status: NPO Clears >2 hours, Solids >8 hours Anesthesia Plan Resuscitation Status: Full Code Anesthesia Technique: General Anesthesia Airway Planned: Endotracheal Tube Pain Management: Surgeon and patient request nerve block Monitors Used: Standard Monitors Preoperative Comments:: 56 yo male for distal bicep repair. Sig PMHx: denies major. Previous Anes: - shoulder, glide grade 1, easy mask with OPA. ISB with 10 mL/10 mL bupiv 0.5%/exparel. - colo, prop, natural airway, no issues. - willams 2, easy mask.
[2024-04-03 18:36] VITALS: BMI 27.4
[2024-04-04] VITALS (16 sets, daily range): BP systolic 118–138; BP diastolic 65–89; PULSE 66–80; RESP 15–23; TEMP 35.9–36.3; O2SAT 92–96
--- NOTE | 2024-04-04 07:20 | PDOC.DSDIS_ITS ---
Date of service: 04/04/24 Time of Service: 15:00 Discharge Plan Disposition Patient Disposition: Home Condition: Stable Discharge Details Attending Provider: Les Dorsey Primary Care Provider: Tab Jeong Home Meds and New Rx's Prescriptions: New naproxen 250 mg tablet 250 - 500 mg PO BID PRNQty: 40 0RF Rx Instructions: take with a meal Continued hydrocodone-acetaminophen 5-325 mg tablet 1 tab PO BID MDD 2 tabs PRN (Reason: chronic pain) Qty: 30 0RF citalopram 20 mg tablet 20 mg PO DAILY Qty: 90 3RF cbd 20 mg capsule 20 mg PO DIRECTED PRN multivitamin [Daily Multi-Vitamin] Tablet 1 tab PO DAILY naproxen 250 mg tablet 250 - 500 mg PO BID PRN (Reason: Moderate pain) Qty: 40 0RF Discharge Instructions Additional Instructions: Surgery: Right shoulder arthroscopy with revision debridement and conversion failed arthoscopic to open biceps tenodesis; Right shoulder arthroscopy with rotator cuff repair (subscapularis and supraspinatus), biceps tenodesis, extensive debridement, and subacromial decompression on 03/06/24. Activity: For another 2 weeks, you should keep your arm at your side in a neutral position at all times except for physical therapy. Do not try to lift or raise your arm using your own muscles. You should use the sling whenever you are out of the house. At home it is best to remove the sling and rest the arm on a pillow at your side or support the operative side with your other hand. You may allow the arm to dangle at your side. Resume physical therapy in about 2 weeks following CONSERVATIVE protocol for RCR. Prescriptions: Naproxen 250 mg take 1-2 every 12 hours with a meal as needed for moderate pain Use home Vicodin prescription hydrocodone?acetaminophen 5-325 mg as needed for severe pain You may use [id number] Tylenol (acetaminophen) as needed for mild pain. These pain medications may be taken all at once or in different combinations as needed. Also, recommend Colace (docusate) as a stool softener as surgery and pain medicine cause constipation. You may try [id number] diphenhydramine (Benadryl) 25-50 mg nightly as a sleep aid Dressings: Remove shoulder tegaderms after 2-3 days. Leave the sticky Steri- Strips in place until they fall off or remove them after you shower. Cover the incisions with Band-Aids or leave them open to air. The biceps bandage (inside upper arm) is glued on separately. You may leave this one on a few days longer if it is difficult to remove. There is also glue underneath this bandage that can be left in place until it peels off. You may shower after 5 days. Follow-up: 10-[address] Dorsey You may take off the leg compression stockings this evening at home. You may also leave them on a few days longer if you have a history of leg swelling or edema. Let us know right away if you develop any redness, drainage, fevers, chest pain, or trouble breathing. Do not drink alcohol or drive for at least 24 hours after anesthesia. Please call the office during business hours with any questions or concerns. Stand Alone Forms: Anesthesia Discharge Inst., Anes.Nerve Block Instructions, Claudine Gan ([facility]) Referrals: Les Dorsey MD [ [facility] STAFF PHYSICIAN] - 04/16/24 11:00 am Discharge Orders Discharge Orders: Discharge Order (Routine); Ordered 04/04/24 Ordered By: Ailyn Renae DS: Diagnosis Discharge Diagnosis (1) Rupture of right proximal biceps tendon: Status: Acute
--- NOTE | 2024-04-04 08:20 | W.PM.OP ---
Date of service: 04/04/24 Time of Service: 14:30 Operative Note Operative Note DATE OF PROCEDURE: 04/04/24 PRE-OP DIAGNOSIS: Right: 1. Rotator cuff repairs: Subscapularis & Supraspinatus 2. Failed arthroscopic biceps tenodesis POST-OP DIAGNOSIS: same PROCEDURE: Right: 1. Revision extensive debridement, CPT# 97148. This involved using arthroscopic hand instruments, power instruments, and radiofrequency instruments to debride rotator interval synovitis, anterior and inferior labral tear fraying, remove loose synovial hemorrhagic bodies, and minor recurrent subacromial bursitis 2. Open biceps tenodesis, CPT# 87690. This involved reattaching the long head of the biceps tendon to the proximal humerus in the sub-pectoral area of the bicipital groove at the correct tension. The technician assistant was medically required in order to help assist in techniques above, which require positioning the arm, holding the arthroscope, and manipulating multiple instruments and sutures at the same time. This cannot be done without the help of an experienced technician assistant. SURGEON: Les Dorsey EMISSIONS TESTING AND REPAIR TECHNICIAN: Ailyn Renae ANESTHESIA TYPE: Local By Surgeon, General LMA/ETT and Primary Nerve Block Refer to Anesthesia Record ESTIMATED BLOOD LOSS: 5 PATHOLOGY: none sent COMPLICATIONS: None Patient was transported to: PACU Patient's condition: stable Implants: Arthrex: Unicortical proximal biceps button Indications: The patient was diagnosed with the above conditions and appropriately indicated for surgical intervention. Please see complete medical record for details. Findings: Exam under anesthesia: Motion not vigorously tested given recent rotator cuff repairs. Moderate proximal biceps asymmetry. Glenohumeral joint and subacromial space: Persistent moderate glenoid chondromalacia, especially anteriorly inferiorly with adjacent labral fraying. Apparent intact subscapularis repair with continuous tissue surrounding and hiding the repair sutures to the site on the lesser tuberosity. Moderate interval synovitis. Loose synovial body. Apparent intact bursal supraspinatus repair with sutures hidden in the healing rotator cuff. Procedure Description: In the operating room, general anesthesia was induced. Bilateral shoulders were examined. The patient was positioned in the beachchair position. All bony prominences were well-padded. Preoperative antibiotics were administered. The shoulder was prepped and draped in the usual sterile fashion. The correct patient, procedure, and side of the procedure were all verified prior to incision. Starting through the previous posterior portal a standard complete diagnostic arthroscopy was performed of the glenohumeral joint. Some recurrent synovitis was debrided, the loose body was removed and inspected and felt to be synovial hemorrhagic loose body. The biceps stump was absent from the superior aspect aspect of the bicipital groove. Subscapularis and articular rotator cuff are intact. There was some more prominent fraying of the anterior and inferior labrum and glenoid cartilage which was debrided and lastly contoured to a stable margin with a radiofrequency ablator. The arthroscope was directed into the subacromial space, there was mild recurrent bursitis, which was removed to visualize the bursal rotator cuff, which appeared intact. The shoulder was drained of arthroscopic fluid. All portal sites were copiously irrigated. 10 cc of 0.25% bupivacaine with epinephrine was infiltrated about a 3 cm longitudinal incision at the inferior margin of the pectoralis major localized over the long head of the biceps tendon. Blunt and sharp dissection were used to expose the tendon in the bicipital groove. The tendon was brought out of the wound and kept off the skin on top of a blue towel. The loop and tack suture tape was still secured to the end of the stump appropriately with about 4 cm of suture tail indicating failure of the suture from the suture anchor. The correct location for sub-pectoral fixation was localized, prepped with a rasp, and then drilled with a 3.2 mm drill pin in a unicortical fashion. Using a fiber loop suture the tendon was prepped from the musculotendinous junction a few centimeters proximal. The excess tendon was amputated. The free suture ends were then passed through the unicortical button implant. The drill pin was removed and the implant was placed into the humeral intramedullary canal. The button was flipped and the sutures were tensioned bringing the tendon down to bone. Tension and fixation were then tested and found to be appropriate. The free ends of the suture were passed on either side of the endon and tied compressing tendon to bone. The wound was copiously irrigated with normal saline. Subcutaneous tissue was closed using 3-0 Monocryl in a buried interrupted fashion. Skin was closed using 3-0 Monocryl in a buried subcuticular running fashion. Skin glue was applied over the incision. Mastisol was applied about the incision. The incision was covered with Telfa, gauze, and covered with a Tegaderm dressing. Shoulder portals incisions were closed using 3-0 Monocryl in a buried fashion and then covered with Steri-Strips, Xeroform, dry gauze, and Tegaderms. The operative extremity was placed into a sling for immobilization. The patient awoke from anesthesia without complication and was transferred to the recovery room in a stable condition.
[2024-04-04] MEDS: Lactated Ringers 1,000 ML 30 ML IV (11:30)
--- NOTE | 2024-04-04 13:09 | W.ANESNERVE ---
Nerve Block Single Injection Procedure Date and Time Date Performed: 04/04/24 Procedure Start: 12:31 Location Where Procedure Performed Procedure Location: Day Surgery Unit Reason Performed: Postoperative Analgesia Requesting Provider: Les Dorsey Timeout Performed Timeout Performed: Yes Monitoring Used ECG, Blood Pressure and SpO2 Sterility Sterility: Hand Hygiene, Surgical Cap, Surgical Mask, Sterile Gloves and Chlorhexidine Sedation Given During Procedure Sedation Given (Indicate Dose Given): Versed IV Dose:: 2 mg Patient Mental Status Patient Mental Status: Sedate with meaningful communication Nerve Block 1st Nerve Block: Laterality: Right Block Type: Interscalene Ultrasound Image Saved?: Yes Needle / Catheter Used: 100mm SonoPlex II Local Anesthetic Bolus (Indicate Dose Given): Lidocaine used for local infiltration of skin, Bupivacaine 0.5% Dose:: 10 mL and Exparel Dose:: 10 mL Additives (Indicate Dose Given): None Ultrasound: Sterile probe cover and gel used Nerve Stimulator: Supplement to Ultrasound use and No twitch or parasthesia noted < 0.5 mA Paresthesia: None Procedure Tolerated: No Complications Procedure Outcome: Successful Performed By: Juventino Armendariz
[2024-04-04] MEDS: ceFAZolin 2 GM/50 ML BAG IVPB (13:26)
[2024-04-04] MEDS: TRANEXAMIC ACID/SOD. CHL. 1,000 MG/100 ML BAG 600 MG IVPB (13:35)
[2024-04-04] MEDS: Bupivacaine 0.25% Pres-Free W/EPI 30 ML VIAL (14:11)
--- NOTE | 2024-04-04 15:36 | W.ANESPOSTOP ---
Postoperative Evaluation Date, Time and Location Date Performed: 04/04/24 Time Performed: 15:36 Patient Location: PACU Vital Signs Most Recent Imported Vital Signs: Most Recent Vital Signs Temp Pulse Resp BP Pulse Ox 36.3 C L 77 17 131/68 95 04/04/24 15:30 04/04/24 15:17 04/04/24 15:20 04/04/24 15:17 04/04/24 15:20 Pain Score Most Recent Pain Score: Most Recent Pain Score Pain Level 0 04/04/24 15:30 Assessment Mental Status: Awake (Alert & Oriented to Patient Baseline) Airway and Respiratory Function: Patent airway with normal (patient baseline) respiratory exam Cardiovascular Function: Hemodynamically Stable Hydration Status: Adequately Hydrated Nausea & Vomiting: No Nausea or Vomiting Pain: Pain is tolerable per patient Peripheral Nerve Block: Regional nerve block not resolved at time of post operative discharge
== END 2024-04-04 16:29 | disposition home or self-care (01) ==
LOC: SUR 10:50
PROVIDERS: PCP Family Medicine; Visit Provider Student in an Organized Health Care Education/Training Program
PROC: (CPT 29805; principal; 2024-04-04 12:15)
DX: S46.211A Strain of muscle, fascia and tendon of other parts of biceps, right arm, initial encounter (principal); X58.XXXA Exposure to other specified factors, initial encounter; M75.21 Bicipital tendinitis, right shoulder; M75.101 Unspecified rotator cuff tear or rupture of right shoulder, not specified as traumatic
CPT/HCPCS: 23430; 29823; 76942; C9290; J0665; J0690; J1100; J1885; J2250; J2371; J2405; J2704

== ENCOUNTER 2024-10-17 13:47 | Outpatient (REF) | payer OTHER, SELFPAY | END 2024-10-17 13:48 | disposition home or self-care (01) | LOC: NCHCN 13:47 | PROVIDERS: PCP Family Medicine; Visit Provider Nurse Practitioner Family | DX: J02.9 Acute pharyngitis, unspecified (principal) | CPT/HCPCS: 87070 ==

== ENCOUNTER 2024-11-10 06:49 | Day surgery (SDC) | payer OTHER, SELFPAY ==
--- NOTE | 2024-11-09 06:55 | W.PM.DSUDISC ---
Date of service: 11/10/24 Discharge Plan Disposition Patient Disposition: Home Condition: Good Discharge Details Reason For Visit: screening colonoscopy Attending Provider: Adams Dahl Primary Care Provider: Tab Jeong Home Meds and New Rx's Prescriptions: Continued citalopram 20 mg tablet 20 mg PO DAILY Qty: 90 3RF hydrocodone-acetaminophen 5-325 mg tablet 1 tab PO BID MDD 2 tabs PRN (Reason: chronic pain) Qty: 30 0RF cbd 20 mg capsule 20 mg PO DIRECTED PRN multivitamin [Daily Multi-Vitamin] Tablet 1 tab PO DAILY Discharge Instructions Instructions: Diverticulosis Additional Instructions: Lisandro, it was good seeing you today. I hope you wake up feeling well and have a great afternoon. Everything went very smoothly. I took out a single bit of tissue today that might be a polyp. However its extremely small, and might actually be nothing at all. Regardless, I will send this off to the pathologist for their review, and once I have that information we can make a better decision regarding timing of future colonoscopies. Incidentally, you have a tiny bit of diverticulosis as well. Diverticula are weak spots in the muscular layer of the colon wall. This causes the inside lining to pocket her pooch outwards a bit. I find these in most patients that I do colonoscopies on. Most are never at all bothered by them. I have attached some basic information about diverticulosis here, but my general advice is to maintain a diet that is rich in fiber, stay well-hydrated, and avoid constipation. As soon as I get the results of the polyp analysis I will let you know. If you need anything in the meantime please feel free to call. 1. If tolerated, consume a soft, low fiber diet for 1-2 days. 2[address] Do not drive, drink alcohol, operate machinery, make critical decisions, or do activities that require coordination or balance for 24 hours. 3. Because air was put into your colon during the procedure, expelling air from your rectum (passing gas or farting) is normal. 4. You may not have a bowel movement for 1-3 days because of the colonoscopy prep. This is normal. 5. Go directly to the emergency room if you notice any of the following: Develop chills (warm to touch), or if you have a thermometer and your temperature is above 101 Difficulty breathing or difficultly swallowing Persistent vomiting Severe abdominal pain, other than gas cramps Severe chest pain Black, tarry stools Any bleeding ? exceeding one tablespoon 6. Call your physician if the site where your intravenous was started becomes red, swollen, painful, and warm to touch. 7. Your physician has reviewed your pre-procedure medications. Please continue to take those medications as previously ordered. You will be given specific information/education regarding any changes to your medications before leaving. Activity:: Activity as Tolerated Diet:: As Tolerated Discharge Orders Discharge Orders: Discharge Order (Routine); Ordered 11/09/24 Ordered By: Adams Dahl DS: Diagnosis Discharge Diagnosis (1) Encounter for screening colonoscopy: Status: Acute Asessment and Plan: Follow-up on polypectomy results
--- NOTE | 2024-11-09 06:57 | COLE_ITS ---
Date of service: 11/10/24 Time of Service: 08:33 Colonoscopy Report Date of procedure: 11/10/24 Pre-op diagnosis general: screening colonoscopy Post-op diagnosis procedure note: other (Colon polyp, diverticulosis) Procedure: colonoscopy with polypectomy Surgeon: Adams Dahl Anesthesia Type: General:No Airway Estimated blood loss (mL): 5 Pathology: other (Less than 0.25 cm flat polyp at 90 cm) Complications: None Disposition: same day Indications: Lisandro is a 59 year old man who needs a screening colonoscopy Prep: Miralax/Dulcolax Procedure Start Time: 08:05 Procedure End Time: : Retraction Time: 16 Findings: Occasional sigmoid diverticula, less than 0.25 cm flat polyp at 90 cm Procedure Description: After the induction of anesthesia, and with the patient in left lateral decubitus position, I began by performing an external anorectal exam.? Perineum and skin were normal, as was the anal verge.? There are some redundant perianal skin consistent with external hemorrhoids.? Next, I performed a digital rectal exam.? I did not appreciate any abnormal findings.? Next, I advanced a colonoscope into the rectal vault.? I performed retroflexion.? This appeared normal.? Using insufflation, I then advanced the colonoscope beyond the rectal folds and into the sigmoid colon before advancing towards the cecum.? The quality of the prep was excellent.? The scope was noted to be in the cecum by identification of the ileocecal valve and appendiceal orifice.? I then began withdrawing the colonoscope using repeated irrigation as necessary for full evaluation of the colonic mucosa. Around 90 cm from the anal verge I identified a 0.25 cm polyp. ?It appeared flat in character. ?I was able to remove this with a cold forcep polypectomy. ?I examined the site, and there was minimal bleeding. ?Once this was completed, I continued to withdraw the scope and examine the remainder of the colonic mucosa. There were just a few narrow mouth diverticula within the sigmoid segment. Once the scope was withdrawn to the level of the rectum, great care was taken to examine portions of the rectal folds.? Finally, the scope was withdrawn and the patient was brought to the same-day surgery recovery unit as the anesthetic wore off. ?The findings and instructions were shared with the patient prior to discharge. [place] Bowel Prep [place] Bowel Prep Right Colon: 2 Left Colon: 3 Transverse Colon: 3 Total Score: 8
--- NOTE | 2024-11-09 08:56 | W.ANESPRE ---
General Info Date of Service Date Performed: 04/04/24 Height: 6 ft 2 in Weight: 99.11 kg Body Mass Index (BMI): 28.0 Surgical Procedure: Operation Date: 11/10/24 08:20 Proposed Procedure Side Surgeon p Colonoscopy Adams Dahl MD Meds Allergies and Home Medications Allergies Allergy/AdvReac Type Severity Reaction Status Date / Time No Known Allergies Allergy Verified 11/10/24 07:14 Home Medication ?Medication ?Instructions ?Recorded cbd 20 mg PO DIRECTED PRN 03/04/24 multivitamin (Daily Multi-Vitamin 1 tab PO DAILY 03/06/24 tablet) citalopram 20 mg tablet 20 mg PO DAILY #90 tab-caps 08/21/24 hydrocodone 5 mg-acetaminophen 325 1 tab PO BID PRN chronic pain #30 08/21/24 mg tablet tab-caps Current Visit Medications: Current Medications Generic Name Dose Route Start Last Admin Trade Name Freq PRN Reason Stop Dose Admin Ringer's Solution 1,000 mls @ 80 mls/hr 11/10/24 06:00 IV 11/10/24 23:59 INFUSION JOSE IV Miscellaneous Supplies 1 each 11/10/24 06:00 Iv Access IV 11/10/24 23:59 DIRECTED JOSE Sodium Chloride 0 ml 11/10/24 06:00 Normal Saline Flush 10 Ml Syr IV 11/10/24 23:59 PRN PRN Sodium Chloride 0 ml 11/10/24 06:00 Normal Saline 10 Ml Vial IJ 11/10/24 23:59 DIRECTED PRN Sterile Water 0 ml 11/10/24 06:00 Water,Injection,Sterile 10 Ml Vial IJ 11/10/24 23:59 DIRECTED PRN PFSH Active Problems Active Problems: Problem Status Onset Code Encounter for screening colonoscopy Acute Z12.11 Umbilical hernia without obstruction and without gangrene Acute K42.9 Serrated adenoma of colon Acute D12.6 Stiffness of right shoulder joint Acute M25.611 Rupture of right proximal biceps tendon Acute S46.211A Tendinitis of long head of biceps brachii of left shoulder Acute M75.22 Tendonitis of long head of biceps brachii of right shoulder Acute M75.21 Right rotator cuff tear Acute M75.101 Labral tear of shoulder Acute S43.439A Right shoulder pain Acute M25.511 Chronic right shoulder pain Acute M25.511, G89.29 Chronic bilateral low back pain without sciatica Acute M54.50, G89.29 Chronic pain syndrome Chronic G89.4 Deviated nasal septum Acute 10/23/16 J34.2 Hypertrophy of nasal turbinates Acute 07/30/17 J34.3 Low back pain Acute M54.5 Nasal valve collapse Acute 07/30/17 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 Surgical History Surgical History Hx of PEYTONIK History of right knee surgery (08/24/14) Repair of inguinal hernia (08/13/17) RIGHT - 07/18/16 Left - 08/13/17 Tobacco Smoking/Tobacco Use Status: Never Passive smoking exposure: Yes Second hand exposure: No Alcohol Alcohol Intake: current Alcohol intake frequency: a few times a week Alcohol type: beer and hard liquor Substance Use Substance use: Daily Substance use type: other Details: CBD HS Vital Signs and Lab Results Vital Signs Most Recent Vital Signs in EMR: Temp Pulse Resp BP Pulse Ox 36 C L 74 16 122/88 96 04/04/24 11:11 04/04/24 11:11 04/04/24 11:11 04/04/24 11:11 04/04/24 11:11 Vital Signs Comment Vital Signs Comment:: Todays VS reviewed. Lab Results Blood Type / Crossmatch: No Data to Display Complete Blood Count: No Data to Display Complete Metabolic Panel: No Data to Display Liver Function Panel: No Data to Display Coagulation Panel: No Data to Display Cardiac Panel: No Data to Display Arterial Blood Gas: No Data to Display Venous Blood Gas: No Data to Display Pancreas Panel: No Data to Display Thyroid Panel: No Data to Display Infectious Disease: No Data to Display Blood Cultures: No Data to Display Toxicology Panel: No Data to Display Anesthesia Assessment and Plan Anesthesia History Personal History: No History of Anesthesia Complications Family History: No Family History of Anesthesia Complications Exercise Tolerance Exercise Tolerance: Metabolic Equivalents>4 Cardiac & Pulmonary Exam Cardiac Exam: Normal S1/S2 Heart Sounds Pulmonary Exam: Clear Bilateral Breath Sounds Implantable Cardiac Device Does patient have a Pacemaker or an ICD?: No Airway Exam Known Difficult Airway: No Mallampati Class: 1 Mouth Opening: Normal (> 3cm) Thyromental Distance: Greater than 3 cm Neck Range of Motion: Full ROM Neck Circumference: Normal Teeth Condition: Normal Dentition ASA Classification ASA Score: ASA 2 Emergency Case?: No NPO Status NPO Status: NPO Clears >2 hours, Solids >8 hours Anesthesia Plan Resuscitation Status: Full Code Anesthesia Technique: General Anesthesia Airway Planned: Natural Airway Monitors Used: Standard Monitors Preoperative Comments:: 56 yo male for colo. Sig PMHx: denies major. Denies GERD. Approp NPO. Previous Anes: - shoulder x 2, glide grade 1, easy mask with OPA. ISB with 10 mL/10 mL bupiv 0.5%/exparel. - colo, prop, natural airway, no issues. - willams 2, easy mask.
[2024-11-10 07:15] VITALS: BP 117/82; PULSE 83; RESP 16; TEMP 36.2; O2SAT 94
[2024-11-10 07:26] VITALS: BMI 28.0
[2024-11-10] MEDS: Lactated Ringers 1,000 ML 80 ML IV (07:30)
--- NOTE | 2024-11-10 07:49 | HPE_ITS ---
Assessment and Plan Assessment and plan (1) Encounter for screening colonoscopy: Status: Acute Assessment and plan: We reviewed the plan for screening colonoscopy today, the indications as part of routine health maintenance, as well as the risks and the benefits of the procedure. I think Lisandro is a very good understanding of all this. He is able to provide informed consent, and we can proceed with colonoscopy as planned. History of Present Illness History of Present Illness Chief Complaint: Screening colonoscopy Narrative: Lisandro is 59 years old. His past 2 previous colonoscopies have been significant for sessile serrated adenomas. He is here for his next screening colonoscopy. In the interim, he has been in his usual state of health. He denies melena, hematochezia, unintentional weight loss, or any worrisome signs or symptoms colorectal cancer. [facility] All Active Problems (Updated 11/09/24 @ 06:56 by Adams Dahl MD) Encounter for screening colonoscopy (Acute) Umbilical hernia without obstruction and without gangrene (Acute) Serrated adenoma of colon (Acute) Stiffness of right shoulder joint (Acute) Rupture of right proximal biceps tendon (Acute) Tendinitis of long head of biceps brachii of left shoulder (Acute) Tendonitis of long head of biceps brachii of right shoulder (Acute) Right rotator cuff tear (Acute) s/p Right shoulder arthroscopy with rotator cuff repair (subscapularis and supraspinatus), biceps tenodesis, extensive debridement, and subacromial decompression 03/06/24 Labral tear of shoulder (Acute) Right shoulder pain (Acute) Chronic right shoulder pain (Acute) Chronic bilateral low back pain without sciatica (Acute) Chronic pain syndrome (Chronic) Deviated nasal septum (Acute 10/23/16) Hypertrophy of nasal turbinates (Acute 07/30/17) Low back pain (Acute) occasion use of narcotics Nasal valve collapse (Acute 07/30/17) Neoplasm of unspecified nature of bone, soft tissue, and skin (Acute 01/14/18) Sleep-disordered breathing (Acute 07/30/17) Snoring (Acute 08/13/17) Encounter for annual physical exam (Acute) discussed labs; recommend PSA, given father's hx of prostate ca, but he would like to hold off Medical History Hyperlipidemia Separation of acromioclavicular joint (08/24/14) Hand arthritis Adenoma of colon (11/10/15) Family history of prostate cancer (08/24/14) father Left inguinal hernia Hypothyroidism Fatigue Surgical History Hx of LASIK History of right knee surgery (08/24/14) Repair of inguinal hernia (08/13/17) RIGHT - 07/18/16 Left - 08/13/17 Family History Mother No problems noted. Father Prostate cancer Sister No problems noted. Brother No problems noted. Social History (Updated 03/03/24 @ 13:48 by Leny Maya) Smoking/Tobacco Use Status: Never Second Hand Exposure: No Smoking risk assessment performed?: Yes Alcohol Intake: current Alcohol Intake frequency: a few times a week Alcohol type: beer and hard liquor Drug use: Daily Substance use type: other Details: CBD HS Household members: spouse Housing: house Do you need help understanding health information?: Never Pets and animals: Yes Pets and animals: dog(s) Sexually active: Yes Do you think of yourself as: straight/heterosexual Current gender identity: male What is your relationship status?: How often do you talk on the phone with friends or family?: twice per week How often do you get together with friends or relatives?: once per week How often do you attend cheondoism or rastafari services?: decline to answer Do you belong to any clubs or organized social groups?: no Panel score (0-1 are the most socially isolated patients): 2 What type of physical activity do you participate in: walking and bicycling Duration: 15-30 minutes/day Frequency: 3-4 times per week Francesca/Nondenominational: No preference Special francesca needs: No Seatbelt use: sometimes Drive intox or ride w/intox truck driver flatbed: No Do you feel safe at home: Yes Do you feel safe in your relationship?: Yes Meds Allergies and Home Medications Allergies Allergy/AdvReac Type Severity Reaction Status Date / Time No Known Allergies Allergy Verified 11/10/24 07:14 Home Medications ?Medication ?Instructions ?Recorded ?Confirmed ?Type cbd 20 mg PO DIRECTED PRN 03/04/24 11/10/24 History multivitamin (Daily Multi-Vitamin 1 tab PO DAILY 03/06/24 11/10/24 History tablet) citalopram 20 mg tablet 20 mg PO DAILY #90 tab-caps 08/21/24 11/10/24 Rx hydrocodone 5 mg-acetaminophen 325 1 tab PO BID PRN chronic pain #30 08/21/24 0 11/10/24 Rx mg tablet tab-caps Exam Const General: cooperative, healthy appearing and not in acute distress Neck Neck: normal visual inspection, no lymphadenopathy and supple Resp Effort & Inspection: normal respiratory effort Auscultation: clear to auscultation bilaterally Cardio Jugular venous pressure: no JVD Rate: regular rate Rhythm: regular rhythm Heart Sounds: S1 normal and S2 normal GI Inspection: normal to inspection Palpation: soft, no guarding, no hernias and nontender Percussion: normal to percussion Auscultation: normal bowel sounds Neuro General: patient alert, patient awake and patient oriented x3 Psych Appearance: grossly normal Results Last Vital Signs Temp 97.2 F L 11/10/24 07:15 Pulse 83 11/10/24 07:15 Resp 16 11/10/24 07:15 BP 117/82 11/10/24 07:15 Pulse Ox 94 11/10/24 07:15
--- NOTE | 2024-11-10 08:16 | BOWEL_PTH ---
PATIENT: Lisandro Alcantara LOC: [facility] U#:[id number] AGE/SX: 59/M ROOM: RE11/10/[address]: Adams Dahl MD : 1965 BED: DIS: 11/10/2024 SPEC #: [id number] RECD: 11/10/24 12:55 STATUS: ARTHUR RE #: [id number] ELI: 11/10/24 08:[address]: Adams Dahl DEPT: Surgical Specimen RECD BY: Maria Esther Ramsey ENTERED: 11/10/24 12:56 SP TYPE: Bowel OTHR DR: Tab Jeong MD Tissues: 1 - BIOPSY BOWEL Procedures: GROSS AND MICRO LEVEL 4 Comments: [id number]
[2024-11-10 08:30] VITALS: BP 95/70; PULSE 71; RESP 14; TEMP 36.5; O2SAT 95
--- NOTE | 2024-11-10 08:52 | W.ANESPOSTOP ---
Postoperative Evaluation Date, Time and Location Date Performed: 11/10/24 Time Performed: 08:40 Patient Location: Day Surgery Unit Vital Signs Most Recent Imported Vital Signs: Most Recent Vital Signs Temp Pulse Resp BP Pulse Ox 36.5 C 71 14 95/70 L 95 11/10/24 08:30 11/10/24 08:30 11/10/24 08:30 11/10/24 08:30 11/10/24 08:30 Pain Score Most Recent Pain Score: Most Recent Pain Score Pain Level 0 11/10/24 07:15 Assessment Mental Status: Awake (Alert & Oriented to Patient Baseline) Airway and Respiratory Function: Patent airway with normal (patient baseline) respiratory exam Cardiovascular Function: Hemodynamically Stable Hydration Status: Adequately Hydrated Nausea & Vomiting: No Nausea or Vomiting Pain: Pt. Denies Any Pain Peripheral Nerve Block: Patient did not receive a nerve block
[2024-11-10 09:10] VITALS: BP 110/87; PULSE 66; RESP 16; TEMP 36.4; O2SAT 95
== END 2024-11-10 09:18 | disposition home or self-care (01) ==
LOC: SUR 06:50
PROVIDERS: PCP Family Medicine; Visit Provider Surgery
PROC: 0DJD8ZZ Inspection of Lower Intestinal Tract, Via Natural or Artificial Opening Endoscopic (ICD-10-PCS; CPT 45378; principal; 2024-11-10 08:15)
DX: Z12.11 Encounter for screening for malignant neoplasm of colon (principal); K63.5 Polyp of colon; K57.30 Diverticulosis of large intestine without perforation or abscess without bleeding; K64.4 Residual hemorrhoidal skin tags; K63.89 Other specified diseases of intestine
CPT/HCPCS: 45380; 88305; J2704

== ENCOUNTER 2025-01-27 13:14 | Outpatient (CLI) | payer OTHER, SELFPAY ==
[2025-01-27 22:41] LABS: PSA, Screening 2.8 ng/mL (<=3.5)
[2025-01-28 10:50] LABS: HIV-1/2 Ag & Ab Screen Negative (Negative)
[2025-01-28 11:02] LABS: HBs Antibody, Quant <3.1 mIU/mL (See Note); Hep B Surface Ab Negative (See Note); Hepatitis B Core Antibody Negative (Negative); Hepatitis B Surface Antigen Negative (Negative)
[2025-01-28 11:08] LABS: Hepatitis C Ab w Rflx HCV PCR Negative (Negative)
== END 2025-01-27 13:15 | disposition home or self-care (01) ==
LOC: LBO 13:14
PROVIDERS: PCP Family Medicine; Visit Provider Family Medicine
DX: Z12.5 Encounter for screening for malignant neoplasm of prostate (principal); Z11.59 Encounter for screening for other viral diseases; Z00.00 Encounter for general adult medical examination without abnormal findings
CPT/HCPCS: 36415; 84153; 86704; 86706; 86803; 87340; 87389

== ENCOUNTER 2025-03-02 03:08 | Outpatient (CLI) | payer OTHER, SELFPAY ==
[2025-03-02 07:31] LABS: Abs Immature Grans 0.02 10^3/uL (0.0-0.06); Absolute Basophil Count 0.03 10^3/uL (0.0-0.2); Absolute Eosinophil Count 0.08 10^3/uL (0.0-0.7); Absolute Monocyte Count 0.62 10^3/uL (0.1-0.8); Absolute Neutrophil Count 2.65 10^3/uL (1.2-6.7); Basophils % 0.6 %; Eosinophils % 1.6 %; HCT 43.5 % (40.0-50.0); HGB 15.3 g/dL (13.5-17.5); Immature Grans % 0.4 %; Lymphocytes % 30.6 %; MCHC 35.2 % (32.0-36.0); MCV 94 fL (80-95); MPV 10.9 fL (8.0-11.0); Monocytes % 12.7 %; Neutrophils % 54.1 %; Platelet Count 142 10^3/uL (130-400); RBC 4.64 10^6/uL (4.36-5.78); RDW 11.9 % (11.8-14.1); RDW-SD 41.1 fL
[2025-03-02 08:35] LABS: ALT 36 U/L (16-63); AST 20 U/L (15-37); Albumin 3.7 g/dL (3.4-5.0); Alkaline Phosphatase 71 U/L (46-116); Anion Gap 5.5 mmol/L (3-11); BUN 21 mg/dL (7-18); Bilirubin, Total 0.5 mg/dL (0.2-1.0); CO2 27.5 mmol/L (21.0-32.0); Calcium 8.4 mg/dL (8.5-10.1); Chloride 106 mmol/L (98-107); Glucose 106 mg/dL (74-106); Potassium 4.2 mmol/L (3.5-5.1); Sodium 139 mmol/L (136-145); Total Protein 6.7 g/dL (6.4-8.2)
== END 2025-03-02 03:09 | disposition home or self-care (01) ==
PROVIDERS: PCP Family Medicine; Visit Provider Family Medicine
DX: R10.9 Unspecified abdominal pain (principal); D64.9 Anemia, unspecified
CPT/HCPCS: 36415; 80053; 85025